=== PATIENT | male | born 1940 | race Caucasian/White ===

== ENCOUNTER → 2020-11-29 | Outpatient (CLI) | payer MEDICARE ==
[2020-11-29 10:32] LABS: HEMOGLOBIN 12.5 g/dL (14.0-18.0)
[2020-11-29 10:42] LABS: INR 0.99; PROTHROMBIN TIME 13.7 seconds (11.9-14.5)
[2020-11-29 10:48] LABS: BLOOD UREA NITROGEN 12 mg/dL (7-26); BUN/CREATININE RATIO 15 (6-25); CREATININE, SERUM 0.81 mg/dL (0.72-1.25); EST GLOMERULAR FILTRATION RATE > 60 ML/MIN (60-)
== END ==
LOC: DX 10:03
PROVIDERS: ATTEND Internal Medicine Infectious Disease
DX: M86.171 Other acute osteomyelitis, right ankle and foot (principal)
CPT/HCPCS: 36415; 36569; 71045; 82565; 84520; 85014; 85049; 85610; 85730

== ENCOUNTER 2024-05-22 10:29 | Emergency (ER) | payer MEDICARE ==
[~2024-05-22] VITALS: Ht 177.8 cm; Wt 77.1 kg
[2024-05-22 10:34] VITALS: TEMP 98.2
[2024-05-22 11:06] LABS: BASOPHILS % 0.4 % (0.0-1.0); EOSINOPHILS # (AUTO) 0.3 (0.0-0.4); EOSINOPHILS % 3.6 % (0.0-6.0); HEMATOCRIT 40.3 % (38.2-49.6); HEMOGLOBIN 13.7 g/dL (14.0-18.0); LYMPHOCYTES % 13.3 % (18.0-39.1); MEAN CORPUSCULAR HEMOGLOBIN 32.7 pg (28-32); MEAN CORPUSCULAR VOLUME 96.2 fL (81-99); MONOCYTES # (AUTO) 0.5 (0.2-0.8); MONOCYTES % 6.4 % (4.4-11.3); NEUTROPHILS # (AUTO) 5.7 (2.1-6.9); NEUTROPHILS % 75.9 % (38.7-80.0); PLATELET COUNT 199 x10e3/uL (140-360); RED BLOOD COUNT 4.19 x10e6/uL (4.3-5.7); RED CELL DISTRIBUTION WIDTH 14.1 % (11.7-14.4); WHITE BLOOD COUNT 7.51 x10e3/uL (4.8-10.8)
[2024-05-22 11:30] LABS: ANION GAP 13.7 mmol/L (8-16); CREATININE, SERUM 0.96 mg/dL (0.72-1.25); POTASSIUM 4.7 mmol/L (3.5-5.1)
[2024-05-22 11:31] LABS: ALBUMIN 4.2 g/dL (3.5-5.0); ALBUMIN/GLOBULIN RATIO 1.3 (0.8-2.0); BILIRUBIN,TOTAL 0.8 mg/dL (0.2-1.2); CALCIUM 9.5 mg/dL (8.4-10.2); INR 0.94; PROTHROMBIN TIME 13.2 seconds (11.9-14.5); TOTAL PROTEIN 7.5 g/dL (6.5-8.1)
[2024-05-22 11:32] LABS: PARTIAL THROMBOPLASTIN TIME 28.5 seconds (23.8-35.5)
[2024-05-22] MEDS: TETANUS/DIPHTHERIA TOX ADULT 0.5 ML SYR IM ONE (11:32)
[2024-05-22] MEDS ORDERED: BACTRIM DS TAB1 EACH PO (12:37)
[2024-05-22] MEDS ORDERED: MINOCYCLINE HCL50 MG PO (12:37)
[2024-05-22] MEDS ORDERED: MUPIROCIN15 GM TOP (12:37)
[2024-05-22 13:18] VITALS: PULSE 77; RESP 16; O2SAT 99
[2024-05-22] MEDS: TRIMETHOPRIM/SULFAMETHOXAZOLE 160-800 MG TAB PO ONE (13:19)
== END 2024-05-22 13:34 | disposition home or self-care (01) ==
LOC: ER 10:48
DX: S91.102A Unspecified open wound of left great toe without damage to nail, initial encounter (principal); S90.212A Contusion of left great toe with damage to nail, initial encounter; E11.65 Type 2 diabetes mellitus with hyperglycemia; I10 Essential (primary) hypertension; Z85.118 Personal history of other malignant neoplasm of bronchus and lung
CPT/HCPCS: 36415; 80053; 85025; 85610; 85730; 90714; 99284

== ENCOUNTER 2024-05-30 15:42 | Inpatient (IN) | payer MEDICARE ==
[~2024-05-30] VITALS: Ht 177.8 cm; Wt 81.9 kg
[~2024-05-30 15:42] MED LIST: BACTRIM DS TAB1 EACH PO; BUPIVACAINE 0.25% 30ML SDV ONE; EPINEPHRINE HCL 1:1000 1ML 1 MG/ML AMP ONE; LIDOCAINE HCL 2% LOCAL 20 ML VIAL ONE; MINOCYCLINE HCL50 MG PO; MUPIROCIN15 GM TOP
[2024-05-30 15:48] VITALS: TEMP 98.3
[2024-05-30 16:11] LABS: BASOPHILS % 0.2 % (0.0-1.0); EOSINOPHILS % 0.3 % (0.0-6.0); HEMATOCRIT 38.6 % (38.2-49.6); HEMOGLOBIN 13.2 g/dL (14.0-18.0); LYMPHOCYTES # (AUTO) 0.7 (1.0-3.2); LYMPHOCYTES % 7.9 % (18.0-39.1); MEAN CORPUSCULAR HEMOGLOBIN 32.8 pg (28-32); MEAN CORPUSCULAR HGB CONC 34.2 g/dL (31-35); MONOCYTES # (AUTO) 0.8 (0.2-0.8); MONOCYTES % 8.5 % (4.4-11.3); NEUTROPHILS # (AUTO) 7.6 (2.1-6.9); NEUTROPHILS % 82.8 % (38.7-80.0); PLATELET COUNT 221 x10e3/uL (140-360); RED BLOOD COUNT 4.02 x10e6/uL (4.3-5.7); RED CELL DISTRIBUTION WIDTH 13.6 % (11.7-14.4); WHITE BLOOD COUNT 9.16 x10e3/uL (4.8-10.8)
[2024-05-30 16:22] LABS: INR 1.04; PROTHROMBIN TIME 14.1 seconds (11.9-14.5)
[2024-05-30 16:23] LABS: PARTIAL THROMBOPLASTIN TIME 30.3 seconds (23.8-35.5)
[2024-05-30 16:31] LABS: ALBUMIN 4.2 g/dL (3.5-5.0); ALBUMIN/GLOBULIN RATIO 1.2 (0.8-2.0); ANION GAP 14.6 mmol/L (8-16); BILIRUBIN,TOTAL 1.6 mg/dL (0.2-1.2); CALCIUM 9.7 mg/dL (8.4-10.2); CREATININE, SERUM 1.09 mg/dL (0.72-1.25); MAGNESIUM 2.1 MG/DL (1.3-2.1); POTASSIUM 4.6 mmol/L (3.5-5.1); TOTAL PROTEIN 7.7 g/dL (6.5-8.1)
[2024-05-30 16:57] LABS: BILIRUBIN,URINE NEGATIVE (NEGATIVE); CLARITY,URINE SL CLOUDY (CLEAR); COLOR,URINE YELLOW (YELLOW); GLUCOSE, URINE 500 (NEGATIVE); KETONES,URINE 2+ (NEGATIVE); LEUKOCYTE ESTERASE ,URINE NEGATIVE (NEGATIVE); NITRITE,URINE NEGATIVE (NEGATIVE); PH,URINE 7 (5 - 7); PROTEIN,URINE DIPSTICK 1+ (NEGATIVE); URINE UROBILINOGEN 0.2 mg/dL (0.2 - 1)
[2024-05-30 17:09] LABS: BACTERIA,URINE FEW /HPF; WBC,URINE (MAN) 0-5 /HPF (0-5)
[2024-05-30] MEDS: SODIUM CHLORIDE 0.9% 1000ML 1,000 ML IV STA (17:09)
[2024-05-30] MEDS: Vancomycin IV 1 GM in SODIUM CHLORIDE 0.9% 250ML 250 ML IV ONE (17:42)
[2024-05-30] MEDS ORDERED: ONDANSETRON HCL INJ 2MG/ML 2ML 2 MG/ML VIAL IV PRN (18:00)
[2024-05-30 18:21] LABS: TROPONIN I 0.002 ng/mL (0-0.300)
[2024-05-30 19:33] VITALS: PULSE 81; RESP 18
[2024-05-30] MEDS: SODIUM CHLORIDE 0.9% 1000ML 1,000 ML IV SCH (20:58)
[2024-05-30 21:03] VITALS: BP 168/59; PULSE 86; RESP 20; TEMP 98.4; O2SAT 99
[2024-05-30] MEDS ORDERED: NOVOLOG100 UNITS1 SQ (21:15)
[2024-05-30] MEDS ORDERED: AMLODIPINE BES2.5 MG PO (21:15)
[2024-05-30] MEDS ORDERED: METFORMIN HCL500 MG PO (21:15)
[2024-05-30] MEDS ORDERED: CARVEDILOL6.25 MG PO (21:15)
[2024-05-30 21:21] VITALS: BP 168/59; PULSE 86; RESP 20; TEMP 98.4; O2SAT 99
[2024-05-30 21:39] VITALS: BP 168/59; PULSE 86; RESP 20; TEMP 98.4; O2SAT 99
[2024-05-30] MEDS ORDERED: DEXTROSE 50% SYRINGE 50 ML IV PRN (22:00)
[2024-05-30] MEDS: CARVEDILOL 12.5 MG TAB PO ONE (22:32)
[2024-05-30] MEDS: AMLODIPINE BESYLATE 5 MG TAB PO ONE (22:32)
[2024-05-30] MEDS: INSULIN LISPRO 100 UNIT/1 ML 3ML VIAL SQ SCH (22:33)
[2024-05-31] VITALS (7 sets, daily range): BP systolic 116–151; BP diastolic 49–64; PULSE 74–82; RESP 18–20; TEMP 98–99.3; O2SAT 97–99
[2024-05-31] MEDS: AMLODIPINE BESYLATE 5 MG TAB PO SCH (05:35)
[2024-05-31] MEDS: Vancomycin IV 1 GM in SODIUM CHLORIDE 0.9% 250ML 250 ML IV SCH (05:35)
[2024-05-31 05:36] LABS: BASOPHILS % 0.3 % (0.0-1.0); EOSINOPHILS # (AUTO) 0.1 (0.0-0.4); EOSINOPHILS % 1.9 % (0.0-6.0); HEMATOCRIT 31.7 % (38.2-49.6); HEMOGLOBIN 10.6 g/dL (14.0-18.0); LYMPHOCYTES % 17.4 % (18.0-39.1); MEAN CORPUSCULAR HEMOGLOBIN 32.6 pg (28-32); MEAN CORPUSCULAR HGB CONC 33.4 g/dL (31-35); MEAN CORPUSCULAR VOLUME 97.5 fL (81-99); MONOCYTES # (AUTO) 0.6 (0.2-0.8); MONOCYTES % 10.2 % (4.4-11.3); NEUTROPHILS # (AUTO) 4.1 (2.1-6.9); NEUTROPHILS % 69.9 % (38.7-80.0); PLATELET COUNT 193 x10e3/uL (140-360); RED BLOOD COUNT 3.25 x10e6/uL (4.3-5.7); RED CELL DISTRIBUTION WIDTH 13.7 % (11.7-14.4); WHITE BLOOD COUNT 5.91 x10e3/uL (4.8-10.8)
[2024-05-31 05:59] LABS: ALBUMIN 3.2 g/dL (3.5-5.0); ALBUMIN/GLOBULIN RATIO 1.1 (0.8-2.0); ANION GAP 9.2 mmol/L (8-16); CALCIUM 8.7 mg/dL (8.4-10.2); CREATININE, SERUM 0.83 mg/dL (0.72-1.25); POTASSIUM 4.2 mmol/L (3.5-5.1); TOTAL PROTEIN 6.1 g/dL (6.5-8.1)
[2024-05-31 06:17] LABS: TROPONIN I 0.005 ng/mL (0-0.300)
[2024-05-31] MEDS: CARVEDILOL 3.125 MG TAB PO SCH (08:50)
[2024-05-31] MEDS ORDERED: TRAMADOL HCL 50 MG TAB PO PRN (10:45)
[2024-05-31] MEDS ORDERED: ACETAMINOPHEN 325 MG TAB PO PRN (10:45)
[2024-05-31] MEDS ORDERED: ONDANSETRON HCL 4 MG ORAL DISINTEGRATING TAB PO PRN (14:00)
[2024-05-31] MEDS: INSULIN GLARGINE 100 UNITS/ML VIAL SQ SCH (21:07)
[2024-06-01] VITALS (8 sets, daily range): BP systolic 118–167; BP diastolic 51–65; PULSE 69–73; RESP 16–20; TEMP 97.8–98.3; O2SAT 97–100
[2024-06-01 06:36] LABS: ALBUMIN 2.6 g/dL (3.5-5.0); ALBUMIN/GLOBULIN RATIO 0.8 (0.8-2.0); ANION GAP 7.1 mmol/L (8-16); BILIRUBIN,TOTAL 0.8 mg/dL (0.2-1.2); CALCIUM 8.9 mg/dL (8.4-10.2); CHOL/HDL RATIO 3.3 (3.9-4.7); CREATININE, SERUM 0.83 mg/dL (0.72-1.25); POTASSIUM 4.1 mmol/L (3.5-5.1); TOTAL PROTEIN 5.7 g/dL (6.5-8.1)
[2024-06-02] VITALS (8 sets, daily range): BP systolic 144–169; BP diastolic 49–64; PULSE 70–75; RESP 16–18; TEMP 97.5–98.4; O2SAT 97–100
[2024-06-02] MEDS ORDERED: FENTANYL CITRATE/PF 100MCG/2 ML INJ ONE (11:28)
[2024-06-02] MEDS ORDERED: MIDAZOLAM HCL 2 MG/2 ML VIAL ONE (11:28)
[2024-06-02] MEDS ORDERED: BUPIVACAINE HCL 0.5% INJ 30 ML VIAL INJ ONE (11:51)
[2024-06-03] VITALS (7 sets, daily range): BP systolic 147–157; BP diastolic 57–76; PULSE 70–79; RESP 17–20; TEMP 97.9–98.2; O2SAT 95–100
[2024-06-03 10:03] LABS: ANION GAP 12.8 mmol/L (8-16); CALCIUM 8.8 mg/dL (8.4-10.2); CREATININE, SERUM 0.84 mg/dL (0.72-1.25); POTASSIUM 3.8 mmol/L (3.5-5.1)
[2024-06-04] VITALS: BP 153/59; PULSE 71; RESP 18; TEMP 98.2; O2SAT 100
[2024-06-04 04:00] VITALS: BP 177/70; PULSE 70; RESP 18; TEMP 97.7; O2SAT 100
[2024-06-04 05:33] LABS: BASOPHILS % 0.4 % (0.0-1.0); EOSINOPHILS # (AUTO) 0.1 (0.0-0.4); EOSINOPHILS % 2.7 % (0.0-6.0); HEMATOCRIT 35.3 % (38.2-49.6); HEMOGLOBIN 11.9 g/dL (14.0-18.0); LYMPHOCYTES % 18.5 % (18.0-39.1); MEAN CORPUSCULAR HEMOGLOBIN 32.3 pg (28-32); MEAN CORPUSCULAR HGB CONC 33.7 g/dL (31-35); MEAN CORPUSCULAR VOLUME 95.9 fL (81-99); MONOCYTES # (AUTO) 0.5 (0.2-0.8); MONOCYTES % 9.2 % (4.4-11.3); NEUTROPHILS # (AUTO) 3.6 (2.1-6.9); NEUTROPHILS % 68.8 % (38.7-80.0); PLATELET COUNT 227 x10e3/uL (140-360); RED BLOOD COUNT 3.68 x10e6/uL (4.3-5.7); RED CELL DISTRIBUTION WIDTH 13.7 % (11.7-14.4); WHITE BLOOD COUNT 5.23 x10e3/uL (4.8-10.8)
[2024-06-04 05:55] LABS: ANION GAP 11.3 mmol/L (8-16); CALCIUM 8.7 mg/dL (8.4-10.2); CREATININE, SERUM 0.78 mg/dL (0.72-1.25)
[2024-06-04 05:56] LABS: POTASSIUM 3.3 mmol/L (3.5-5.1)
[2024-06-04 08:02] VITALS: BP 152/69; PULSE 73; RESP 19; TEMP 98; O2SAT 98
[2024-06-04 11:54] VITALS: BP 143/59; PULSE 77; RESP 19; TEMP 98.2; O2SAT 99
[2024-06-04] MEDS ORDERED: DOXYCYCLINE HY100 MG PO (14:06)
== END 2024-06-04 16:00 | disposition home health service (06) | DRG 617 ==
LOC: ER 15:46 → ERHOLD 17:56 → MED/SURG3 20:49
PROVIDERS: ADMIT Internal Medicine; ATTEND Internal Medicine
PROC: 0Y6S0Z0 Detachment at Left 2nd Toe, Complete, Open Approach (ICD-10-PCS; principal; 2024-06-02 11:53)
PROC: 0JBR0ZZ Excision of Left Foot Subcutaneous Tissue and Fascia, Open Approach (ICD-10-PCS; 2024-06-04)
DX: E11.69 Type 2 diabetes mellitus with other specified complication (principal); E11.52 Type 2 diabetes mellitus with diabetic peripheral angiopathy with gangrene; L02.612 Cutaneous abscess of left foot; M86.172 Other acute osteomyelitis, left ankle and foot; L97.429 Non-pressure chronic ulcer of left heel and midfoot with unspecified severity; I96 Gangrene, not elsewhere classified; E11.621 Type 2 diabetes mellitus with foot ulcer; E11.42 Type 2 diabetes mellitus with diabetic polyneuropathy; L97.529 Non-pressure chronic ulcer of other part of left foot with unspecified severity; B96.89 Other specified bacterial agents as the cause of diseases classified elsewhere; T54.91XA Toxic effect of unspecified corrosive substance, accidental (unintentional), initial encounter; T25.632A Corrosion of second degree of left toe(s) (nail), initial encounter; T25.622A Corrosion of second degree of left foot, initial encounter; Y93.E8 Activity, other personal hygiene; Y92.009 Unspecified place in unspecified non-institutional (private) residence as the place of occurrence of the external cause; I25.10 Atherosclerotic heart disease of native coronary artery without angina pectoris; Z95.5 Presence of coronary angioplasty implant and graft; I10 Essential (primary) hypertension; Z85.49 Personal history of malignant neoplasm of other male genital organs; Z85.118 Personal history of other malignant neoplasm of bronchus and lung; Z87.891 Personal history of nicotine dependence; Z89.412 Acquired absence of left great toe
CPT/HCPCS: 36415; 71045; 80048; 80053; 80061; 80202; 81001; 82550; 82948; 83036; 83735; 84484; 85025; 85610; 85730; 87040; 87071; 87075; 87086; 87205; 88304; 88305; 88311; 93005; 93925; 99252; 99284; J0171; J2001; J2250; J2543; J7030; J7050; U0002